=== PATIENT | female | born 1925 | race Caucasian/White ===

== ENCOUNTER → 2017-04-09 | Outpatient (CLI) | payer MEDICARE ==
[2017-04-09 11:27] LABS: Anisocytosis Moderate; CH 30.1; CHCM 29.9; HCT 29.9 % (34.0-46.0); HDW 3.53; HGB 9.1 gm/dL (11.4-16.0); Hypochromasia Marked; MCH 31.2 pg (25.0-35.0); MCHC 30.6 g/dL (31.0-37.0); Macrocytosis Marked; Mean Platelet Volume 8.9; Poikilocytosis Slight; RBC 2.93 m/uL (3.80-5.40); RDW 23.2 % (11.5-15.5); WBC 5.6 k/uL (3.8-10.6)
[2017-04-09 11:50] LABS: Calcium 8.9 mg/dL (8.4-10.2); Potassium 3.6 mmol/L (3.5-5.1)
== END | disposition home or self-care (01) ==
LOC: LABWHC1 10:49
PROVIDERS: ATTEND Internal Medicine Interventional Cardiology
DX: I05.0 Rheumatic mitral stenosis (principal); I50.9 Heart failure, unspecified
CPT/HCPCS: 36415; 80048; 85027

== ENCOUNTER → 2017-05-07 | Outpatient (CLI) | payer MEDICARE ==
[2017-05-07 16:25] LABS: Anisocytosis Marked; CH 32.4; CHCM 30.6; HDW 3.15; HGB 10.6 gm/dL (11.4-16.0); Hypochromasia Marked; MCH 33.4 pg (25.0-35.0); MCHC 31.2 g/dL (31.0-37.0); Macrocytosis Marked; Mean Platelet Volume 8.2; RBC 3.17 m/uL (3.80-5.40); RDW 24.2 % (11.5-15.5)
[2017-05-07 16:28] LABS: MCV 107.2 fL (80.0-100.0)
[2017-05-07 16:30] LABS: Calcium 9.4 mg/dL (8.4-10.2)
[2017-05-07 16:38] LABS: Potassium 3.1 mmol/L (3.5-5.1)
== END ==
LOC: LABWHC1 16:00
PROVIDERS: ATTEND Internal Medicine Interventional Cardiology
DX: I50.20 Unspecified systolic (congestive) heart failure (principal); E11.9 Type 2 diabetes mellitus without complications; I10 Essential (primary) hypertension
CPT/HCPCS: 36415; 80048; 85027

== ENCOUNTER → 2017-08-17 | Outpatient (CLI) | payer MEDICARE ==
[2017-08-17 15:00] LABS: Anisocytosis Slight; CH 35.6; CHCM 30.8; HCT 38.3 % (34.0-46.0); HGB 11.8 gm/dL (11.4-16.0); Hypochromasia Moderate; MCHC 30.7 g/dL (31.0-37.0); Macrocytosis Marked; Mean Platelet Volume 8.3; RBC 3.27 m/uL (3.80-5.40); RDW 18.7 % (11.5-15.5)
[2017-08-17 15:03] LABS: Potassium 4.4 mmol/L (3.5-5.1)
== END | disposition home or self-care (01) ==
LOC: LABWHC1 14:32
PROVIDERS: ATTEND Internal Medicine Interventional Cardiology
DX: I50.9 Heart failure, unspecified (principal); I27.2 Other secondary pulmonary hypertension
CPT/HCPCS: 36415; 80048; 85027